=== PATIENT | female | born 2000 | race Caucasian/White ===

== ENCOUNTER 2019-11-13 11:23 | Emergency (ER) | payer MEDICAID ==
[~2019-11-13] VITALS: Ht 157.5 cm; Wt 56.0 kg
[2019-11-13] MEDS ORDERED: IBUPROFEN 600MG TABLET PO STA (12:04)
[2019-11-13 12:10] LABS: CLARITY URINE CLOUDY (CLEAR); COLOR URINE YELLOW (YELLOW); KETONES URINE NEGATIVE (NEGATIVE); LEUKOCYTE ESTERASE URINE 3+ (NEGATIVE); NITRITE URINE POSITIVE (NEGATIVE); OCCULT BLOOD URINE 1+ (NEGATIVE); PROTEIN URINE TRACE (NEGATIVE); SPECIFIC GRAVITY URINE 1.022 (1.005-1.030)
[2019-11-13 14:25] VITALS: BP 116/74
== END 2019-11-13 14:29 | disposition home or self-care (01) ==
LOC: ER 11:23
DX: N39.0 Urinary tract infection, site not specified (principal); N61.0 Mastitis without abscess; G40.909 Epilepsy, unspecified, not intractable, without status epilepticus
CPT/HCPCS: 81003; 81025; 87070; 87077; 87186; 87430; 87804; 99283